=== PATIENT | female | born 2000 | race Hispanic/Latino ===

== ENCOUNTER 2020-04-15 11:50 | Inpatient (IN) | payer OTHER ==
[2020-04-15 12:30] VITALS: BMI 25.4
[2020-04-15] MEDS ORDERED: Bupivacaine HCl 0.5%/Epinephrine 1:200,000/PF 30 ml Vial ONE (12:50)
[2020-04-15] MEDS ORDERED: Terbutaline Sulfate 1 MG/ML VIAL ONE (12:50)
[2020-04-15] MEDS ORDERED: Bupivacaine/Epinephrine 0.25% 30 ML VIAL ONE (12:50)
[2020-04-15] MEDS ORDERED: Lidocaine 2% MPF 10 ML AMP (For Epidural Use) ONE (12:50)
[2020-04-15] MEDS: Lactated Ringer's 1,000 ML IV SCH ×2 (13:00→19:33)
[2020-04-15] MEDS ORDERED: Promethazine HCl 25 MG/ML VIAL IM PRN ×2 (13:45→20:35)
[2020-04-15] MEDS ORDERED: Misoprostol 100 MCG TAB VAG SCH (13:45)
[2020-04-15] MEDS ORDERED: HYDROcodone/Acetaminophen 5/325 mg Tablet PO PRN ×2 (13:45)
[2020-04-15] MEDS ORDERED: Ibuprofen 800 MG TAB PO PRN (13:45)
[2020-04-15] MEDS ORDERED: Misoprostol 200 MCG TAB PR PRN (13:45)
[2020-04-15] MEDS ORDERED: Ondansetron PF 4 MG/2 ML Vial IVP PRN ×2 (13:45→20:35)
[2020-04-15] MEDS ORDERED: Carboprost 250 MCG/ML AMP IM PRN (13:45)
[2020-04-15] MEDS ORDERED: NS / Oxytocin 40 units/1000ml 1,000 ML IV PRN (13:45)
[2020-04-15] MEDS ORDERED: NS w/ Oxytocin 10 units 500 ML IV SCH (13:45)
[2020-04-15] MEDS ORDERED: Butorphanol Tartrate 1 MG/ML VIAL SLOW IVP PRN (13:45)
[2020-04-15] MEDS ORDERED: Methylergonovine 0.2 MG/ML VIAL IM PRN (13:45)
[2020-04-15] MEDS ORDERED: hydrALAZINE 20 MG/ML VIAL SLOW IVP PRN (13:45)
[2020-04-15] MEDS ORDERED: Lidocaine 1% (PF) 30 ML VIAL SC PRN (13:45)
--- NOTE | 2020-04-15 13:50 | PDOC.LDHP ---
Labor and Delivery H&P Chief complaint: loss of fluid HPI: On Wed patient lost her mucus plug. At the time she had a small spot of liquid that came out. Wednesday she had some more leaking one time. They she woke this morning and her underwear were wet, but not the bed. She has been having cramping pain all night long. Both in her back and now really low in the front. +FM. Neg vaginal bleeding. Current gestational age (weeks): 38 (6 day) Due date: 04/23/20 Dating criteria: last menstrual period Grav: 1 Para: 0 Current complications: other (PROM) Abnormal US findings: No Current medications: pre-chente vitamins Previous surgical history: none Allergies/Adverse Reactions: Allergies Allergy/AdvReac Type Severity Reaction Status Date / Time No Known Allergies Allergy Verified 04/15/20 12:20 Social history: none - Physical Exam Vital signs reviewed and normal: yes General: NAD Lungs: nonlabored breathing Abdomen: gravid Extremeties: no edema FHT: category 1 - Vaginal Exam cm dilated: 1 Effacement: 75% Station: 0 - OB Labs Blood type: O RH: positive Antibody Screen: negative HIV: negative RPR: negative HEPSAg: negative 1 hour GCT: negative GBS: negative Urine drug screen: negative Rubella: immune - Assessment L&D Assessment: term rupture in membranes (cytotec PV for cervical ripening.)
[2020-04-15 14:19] LABS: Hemoglobin 12.6 g/dL (12.0-16.0); Mean Corpuscular HGB CONC 35.8 g/dL (32.0-36.0); Mean Corpuscular Hemoglobin 34.6 pg (25.0-35.0); Mean Corpuscular Volume 96.8 fL (78.0-98.0); Mean Platelet Volume 10.4 fL (7.4-10.4); Platelet Count 227 thou/uL (130-400); RBC Distribution Width 12.8 % (11.5-14.5); Red Blood Cell (RBC) Count 3.64 mill/uL (4.00-5.20); White Blood Cell (WBC) Count 9.3 thou/uL (4.8-10.8)
[2020-04-15 14:51] LABS: HBSAg Index 0.31 S/CO (0-0.99); Hep B Surf Ag Non-Reactive S/CO (NonReactive); Syphilis Antibody Nonreactive (Nonreactive); Syphilis Antibody Index 0.05 S/CO (<1.00 Non-Reactive)
[2020-04-15] MEDS ORDERED: Fentanyl 4 mcg/Bup 0.1% Cadd 100 ML ONE (19:14)
[2020-04-15] MEDS ORDERED: diphenhydrAMINE 50 MG/ML VIAL IVP PRN (20:35)
[2020-04-15] MEDS ORDERED: Lactated Ringer's 500 ML IV PRN (20:35)
[2020-04-15] MEDS ORDERED: Naloxone HCl 0.4 mg/ml Vial IVP PRN ×2 (20:35)
[2020-04-15] MEDS ORDERED: EPHEDRINE 25 MG/5 ML SYRINGE SLOW IVP PRN (20:35)
[2020-04-15] MEDS ORDERED: Acetaminophen 325 MG TAB PO PRN (20:35)
[2020-04-15] MEDS ORDERED: Communication Order-Pharmacy FS SCH (20:45)
[2020-04-15] MEDS ORDERED: Fentanyl 4 mcg/Bupivacaine 0.1% Cassette 100 ML EPIDURAL SCH (20:45)
--- NOTE | 2020-04-15 23:05 | PDOC.LDPN ---
Labor & Delivery Progress Note - Objective Abnormal vital signs: TAchcardia secondary to Terbutaline Uterine fundus: non tender Dilation: 4 Effacement: 90% Station: -1 FHT: category 2 Warrens contractions every: Currently Q2-3. IUPC placed: yes FSE placed: yes Resuscitative measures: maternal oxygen, maternal position change -: I was notified of prolonged decel to 80s for 9 minutes; while I was on the phone the baseline returned to normal. due to hyperstilmulation, two doses of terbutaline were administered. RN notified me of recurrent late contraction. Arrived to hospital at 2308. tachycardia resolving, with occasional lates. I observe pt for 1 hr. I discussed the status with patient. No cervical change made. Proceed with delivery for non-reassuring FHTs, tachycardia.
[2020-04-15] MEDS ORDERED: Azithromycin 500 MG VIAL ONE (23:42)
[2020-04-15] MEDS ORDERED: MORPHINE 5 MG/10 ML PF VIAL ONE (23:57)
[2020-04-15] MEDS ORDERED: Fentanyl 100 MCG/2 ML VIAL ONE (23:57)
[2020-04-15] MEDS ORDERED: Ketorolac Tromethamine 30 MG/ML VIAL ONE (23:58)
[2020-04-15] MEDS ORDERED: EPHEDRINE 25 MG/5 ML SYRINGE ONE (23:58)
[2020-04-15] MEDS ORDERED: PHENYLEPHRINE-NS 100 MCG/ML 10 ML SYRINGE ONE (23:58)
[2020-04-15] MEDS ORDERED: Oxytocin 10 UNITS/ML VIAL ONE (23:58)
[2020-04-15] MEDS ORDERED: Dexamethasone 4 mg/ml Vial ONE (23:58)
[2020-04-16] MEDS ORDERED: CEFAZOLIN 2 GM in Premix Bag 1 BAG IVPB SCH (00:15)
[2020-04-16] MEDS ORDERED: Bicitra 30 ML UDCUP PO SCH (00:15)
[2020-04-16] MEDS ORDERED: Azithromycin 500 MG in Sodium Chloride 0.9% 250 ML 250 ML IVPB SCH (00:15)
[2020-04-16] MEDS ORDERED: Ondansetron PF 4 MG/2 ML Vial ONE (00:31)
[2020-04-16 00:36] LABS: Actual Bicarbonate (HCO3v) 17 mEq/L (22-28); Base Excess -10.8 mEq/L (-2.0 to +3.0)
[2020-04-16 00:38] LABS: Actual Bicarbonate (HCO3a) 17.8 mEq/L (22-28); Base Excess (BEa) -12.1 mEq/L (-2.0 to +3.0)
[2020-04-16 00:40] LABS: pH (Cord, venous) 7.18 (7.32-7.43)
[2020-04-16] MEDS ORDERED: diphenhydrAMINE 50 MG/ML VIAL IVP PRN (00:44)
[2020-04-16] MEDS ORDERED: Ketorolac Tromethamine 30 MG/ML VIAL IVP PRN (00:44)
[2020-04-16] MEDS ORDERED: Meperidine HCl/PF 25 MG/ML VIAL SLOW IVP PRN (00:44)
[2020-04-16] MEDS ORDERED: Promethazine HCl 25 MG/ML VIAL IM PRN (00:44)
[2020-04-16] MEDS ORDERED: Ondansetron PF 4 MG/2 ML Vial IVP PRN ×2 (00:44→04:05)
[2020-04-16] MEDS ORDERED: Naloxone HCl 0.4 mg/ml Vial IV PRN (00:44)
[2020-04-16] MEDS ORDERED: Ondansetron HCl/PF 4 MG/2 ML Vial IVP PRN (00:44)
[2020-04-16] MEDS ORDERED: Promethazine HCl 25 MG SUPP PR PRN (00:44)
[2020-04-16] MEDS ORDERED: Naloxone HCl 0.4 mg/ml Vial IVP PRN ×2 (00:44)
[2020-04-16] MEDS ORDERED: L&D-Morphine 4 MG/ML VIAL SLOW IVP PRN (00:44)
[2020-04-16] MEDS ORDERED: HYDROmorphone 2 MG/ML VIAL SLOW IVP PRN (00:44)
[2020-04-16] MEDS ORDERED: Communication Order-Pharmacy FS SCH (00:45)
--- NOTE | 2020-04-16 03:34 | OP ---
DATE OF PROCEDURE: 04/16/2020 PREOPERATIVE DIAGNOSES: 1. Intrauterine at 39 weeks and zero days. 2. Spontaneous rupture of membranes. 3. Non-reassuring heart tones. 4. intolerance to labor. POSTOPERATIVE DIAGNOSES: 1. Intrauterine at 39 weeks and zero days. 2. Spontaneous rupture of membranes. 3. Non-reassuring heart tones. 4. intolerance to labor. PROCEDURE: Primary lower transverse section. APPRENTICE PAINTER NECKTIES: Diana Osborne, nurse regional hr manager. QUANTITATIVE BLOOD LOSS: 637. COMPLICATIONS: None. COUNTS: Correct. FINDINGS: Male in OP presentation with a double nuchal cord. Weight 2890 g. Apgars 4 and 9. DESCRIPTION OF PROCEDURE: Ms. Jodi Saleem was taken back to the operating room for an emergent primary lower transverse section secondary to intolerance to labor and nonreassuring heart tones as represented with repetitive late decelerations. The patient was counseled to the risks and benefits of by her primary provider and was taken back for primary , given the overall picture and the long protracted course. The patient was then placed in dorsal supine position with a leftward tilt. She was prepared and draped in normal sterile fashion. Attention was placed abdominally, where a Pfannenstiel skin incision was made and carried down to the level of fascia. Fascia was incised and extended laterally, identified, and extended superiorly and inferiorly. The fascial incisions were then extended laterally with curved Mayos. These fascial planes were then elevated off the underlying rectus muscles both superiorly and inferiorly. The peritoneal cavity was entered into bluntly and also extended bluntly. An Neptali O retractor was then placed and engaged. The lower uterine segment of this was then identified. A bladder flap was created and a skin incision was made in a transverse fashion in the lower uterine segment. The infant's head was then delivered into the sterile field. Cord was clamped and cut and the was handed off to the waiting attendants for resuscitative measures. At that point in time, the hysterotomy was then closed with #1 Monocryl in a running locked fashion. A second imbricating layer was then made and the uterus was returned back to the abdomen. The peritoneum was then closed with 2-0 chromic in a running fashion. Subcutaneous fat was closed with 3-0 plain gut in a running fashion. Skin was closed with 4-0 Monocryl in a running fashion. The patient was taken to recovery room in stable condition. Job ID: [id number]
[2020-04-16] MEDS ORDERED: Methylergonovine 0.2 MG/ML VIAL IM PRN (04:05)
[2020-04-16] MEDS ORDERED: hydrALAZINE 20 MG/ML VIAL SLOW IVP PRN (04:05)
[2020-04-16] MEDS ORDERED: NS / Oxytocin 40 units/1000ml 1,000 ML IV SCH (04:05)
[2020-04-16] MEDS ORDERED: Misoprostol 200 MCG TAB PR PRN (04:05)
[2020-04-16] MEDS ORDERED: HYDROcodone/Acetaminophen 5/325 mg Tablet PO PRN (04:05)
[2020-04-16] MEDS ORDERED: Acetaminophen 325 MG TAB PO PRN (04:05)
[2020-04-16] MEDS: Lactated Ringer's 1,000 ML IV SCH ×2 (06:48→15:14)
[2020-04-16] MEDS: Ferrous Sulfate 325 MG TAB PO SCH ×2 (09:42→19:16)
[2020-04-16] MEDS: Simethicone Chewable 80 MG TAB PO PRN (09:43)
[2020-04-16] MEDS: Prenatal Vitamin 1 TAB PO SCH (09:43)
[2020-04-16] MEDS: Ibuprofen 800 MG TAB PO SCH ×2 (14:50→22:11)
[2020-04-17] MEDS: Ibuprofen 800 MG TAB PO SCH ×3 (05:42→21:37)
[2020-04-17 06:47] LABS: Hemoglobin 9.4 g/dL (12.0-16.0); Mean Corpuscular HGB CONC 35.1 g/dL (32.0-36.0); Mean Corpuscular Hemoglobin 34.4 pg (25.0-35.0); Mean Corpuscular Volume 97.8 fL (78.0-98.0); Mean Platelet Volume 8.2 fL (7.4-10.4); Platelet Count 168 thou/uL (130-400); Red Blood Cell (RBC) Count 2.74 mill/uL (4.00-5.20); White Blood Cell (WBC) Count 9.3 thou/uL (4.8-10.8)
[2020-04-17] MEDS: Prenatal Vitamin 1 TAB PO SCH (08:27)
[2020-04-17] MEDS: Simethicone Chewable 80 MG TAB PO PRN ×2 (08:27→17:14)
[2020-04-17] MEDS: HYDROcodone/Acetaminophen 5/325 mg Tablet PO PRN ×3 (08:27→17:15)
[2020-04-17] MEDS: Ferrous Sulfate 325 MG TAB PO SCH ×2 (08:27→17:14)
[2020-04-17] MEDS ORDERED: Adacel (T-DAP) 0.5 ML SYRINGE IM ONE (09:00)
[2020-04-17] MEDS: Lactated Ringer's 1,000 ML IV SCH ×2 (09:43→09:44)
[2020-04-18] MEDS: Ibuprofen 800 MG TAB PO SCH ×2 (05:45→14:05)
[2020-04-18 07:58] VITALS: BP 120/77; TEMP 98
[2020-04-18] MEDS: Lactated Ringer's 1,000 ML IV SCH ×2 (08:14→08:18)
[2020-04-18] MEDS: Prenatal Vitamin 1 TAB PO SCH (09:40)
[2020-04-18] MEDS: Simethicone Chewable 80 MG TAB PO PRN (09:40)
[2020-04-18] MEDS: Ferrous Sulfate 325 MG TAB PO SCH (09:40)
--- NOTE | 2020-04-18 15:08 | PDOC.PP ---
Post Progress Note Post Day #: 1 Subjective: pt is doing well. She just got back from Nursery to watch baby get a bath. She is trying to breastfeed. PO intake tolerated: yes Flatus: yes Ambulation: yes Vital Signs (12 hours) Temp Pulse Resp BP Pulse Ox 04/18/20 07:57 98.0 F 74 20 120/77 99 Weight Weight 135 lb - Physical Examination General: NAD Respiratory: non-labored breathing Abdominal: no distention, appropriately TTP Extremities: negative homans (B) Skin: CS incision dry & intact Neurological: no gross focal deficits Psychiatric: A&Ox3, normal affect Result Diagrams: 04/17/20 06:33 Additional Labs: Post Labs Blood Type O POSITIVE 04/15/20 14:31 Hep Bs Antigen Non-Reactive S/CO (NonReactive) 04/15/20 14:08 (1) Non-reassuring heart rate or rhythm affecting management of fetus Code(s): [id number] - Status: Acute (2) History of low transverse section Code(s): Z98.891 - HISTORY OF UTERINE SCAR FROM PREVIOUS SURGERY Status: Acute (3) S/P primary low transverse Code(s): Z98.891 - HISTORY OF UTERINE SCAR FROM PREVIOUS SURGERY Status: Acute (4) Primigravida Code(s): Z34.00 - ENCNTR FOR SUPRVSN OF NORMAL FIRST , UNSP TRIMESTER Status: Acute - Assessment/Plan A: g1 now p1 s/p LTCS with NML day 1 exam
--- NOTE | 2020-04-18 15:11 | PDOC.PP ---
Post Progress Note Post Day #: 2 Subjective: pt is hurting more than she did yesterday. She has only been up to shower today. Not ambulating. PO intake tolerated: yes Flatus: yes Ambulation: no Vital Signs (12 hours) Temp Pulse Resp BP Pulse Ox 04/18/20 07:57 98.0 F 74 20 120/77 99 Weight Weight 135 lb - Physical Examination General: NAD Respiratory: non-labored breathing Abdominal: lochia, no distention Skin: CS incision dry & intact, no rash Neurological: no gross focal deficits Psychiatric: A&Ox3, normal affect Result Diagrams: 04/17/20 06:33 Additional Labs: Post Labs Blood Type O POSITIVE 04/15/20 14:31 Hep Bs Antigen Non-Reactive S/CO (NonReactive) 04/15/20 14:08 (1) Non-reassuring heart rate or rhythm affecting management of fetus Code(s): [id number] - Status: Acute (2) History of low transverse section Code(s): Z98.891 - HISTORY OF UTERINE SCAR FROM PREVIOUS SURGERY Status: Acute (3) S/P primary low transverse Code(s): Z98.891 - HISTORY OF UTERINE SCAR FROM PREVIOUS SURGERY Status: Acute (4) Primigravida Code(s): Z34.00 - ENCNTR FOR SUPRVSN OF NORMAL FIRST , UNSP TRIMESTER Status: Acute - Assessment/Plan A: s/p LTCS with increased pain and nausea. P: Ambulation in halls tonight. zofran if nausea and vomiting.
== END 2020-04-18 17:15 | disposition home or self-care (01) | DRG 788 ==
LOC: L&D 11:50 → 3SW 04-16 03:51
PROVIDERS: ADMIT Obstetrics & Gynecology; ATTEND Obstetrics & Gynecology
PROC: 10D00Z1 Extraction of Products of Conception, Low, Open Approach (ICD-10-PCS; principal; 2020-04-16)
DX: O76 Abnormality in fetal heart rate and rhythm complicating labor and delivery (principal); Z3A.39 39 weeks gestation of pregnancy; Z37.0 Single live birth; O66.40 Failed trial of labor, unspecified
CPT/HCPCS: 36415; 51702; 76815; 82805; 84112; 85027; 86780; 86850; 86900; 86901; 87340; J0360; J0456; J0595; J0670; J0690; J1100; J1885; J2001; J2274; J2405; J2590; J3010; J3105